=== PATIENT | male | born 1985 | race African-American/Black ===

== ENCOUNTER 2016-10-12 18:23 | Emergency (ER) | payer OTHER ==
[~2016-10-12] VITALS: Ht 177.8 cm; Wt 65.8 kg
[2016-10-12] MEDS ORDERED: Bacitracin Oint UD TOPIC ONE (19:15)
[2016-10-12] MEDS ORDERED: TdaP Vaccine 0.5ml Syr IM ONE (19:15)
[2016-10-12] MEDS ORDERED: IBUPROFEN600 MG ORAL (20:05)
[2016-10-12 20:23] VITALS: BP 138/81
[2016-10-12 20:24] VITALS: BP 138/81
--- NOTE | 2016-10-13 10:03 | Diagnostic Imaging Report ---
Indications: Left ankle pain Technique: 3 views of the left ankle Findings: Comparison: None. No fracture, dislocation, joint space widening or effusion, lytic destruction, periosteal reaction, surrounding soft tissue swelling, or other acute changes are demonstrated. No deformity, alignment abnormality, arthritic change, soft tissue calcification, or other chronic changes are demonstrated. IMPRESSION: Negative left ankle series.
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
== END 2016-10-12 20:26 | disposition home or self-care (01) ==
LOC: EDBD 18:23 → EMR 20:22
DX: S80.812A Abrasion, left lower leg, initial encounter (principal); S93.402A Sprain of unspecified ligament of left ankle, initial encounter; V13.4XXA Pedal cycle driver injured in collision with car, pick-up truck or van in traffic accident, initial encounter; Y93.55 Activity, bike riding; Y92.9 Unspecified place or not applicable; Z23 Encounter for immunization
CPT/HCPCS: 90471; 90715; 99283